=== PATIENT | male | born 1990 | race African-American/Black ===

== ENCOUNTER 2019-06-21 09:24 | Emergency (ER) | payer MEDICAID ==
[~2019-06-21] VITALS: Ht 180.3 cm; Wt 67.6 kg
[2019-06-21 10:03] VITALS: BP 120/68
[2019-06-21] MEDS ORDERED: cefTRIAXone SOD 1,000 MG VL IM ONE (10:30)
== END 2019-06-21 11:15 | disposition home or self-care (01) ==
LOC: ER 09:24
DX: L03.113 Cellulitis of right upper limb (principal); L02.511 Cutaneous abscess of right hand; F17.210 Nicotine dependence, cigarettes, uncomplicated
CPT/HCPCS: 96372; 99283; J0696

== ENCOUNTER 2021-08-03 12:05 | Emergency (ER) | payer MEDICAID ==
[~2021-08-03] VITALS: Ht 180.3 cm; Wt 74.8 kg
[2021-08-03 13:00] VITALS: BP 131/72
== END 2021-08-03 14:31 | disposition home or self-care (01) ==
LOC: ER 12:05
DX: S01.21XA Laceration without foreign body of nose, initial encounter (principal); F17.210 Nicotine dependence, cigarettes, uncomplicated; W25.XXXA Contact with sharp glass, initial encounter; Y93.89 Activity, other specified; Y92.89 Other specified places as the place of occurrence of the external cause; Y99.8 Other external cause status
CPT/HCPCS: 12011